=== PATIENT | male | born 1990 ===

== ENCOUNTER 2016-12-05 13:42 | Emergency (ER) | payer OTHER ==
[2016-12-05 14:36] VITALS: BP 120/52
--- NOTE | 2016-12-05 14:58 | UC ---
Abdominal Pain Male HPI - HPI Summary HPI Summary: 26 yo male awoke at three AM and had 3-4 episodes of vomiting since the has had some mild epigastric pain no diarrhea has been able to tolerate liquids today no f/c no UTI symptoms states he is here because he needs a work not for today drank Etoh last PM no nsaid use - History of Current Complaint Chief Complaint: UCGI Stated Complaint: VOMITING CONSTIPATION Time Seen by Provider: 12/05/16 14:35 Hx Obtained From: Patient Onset/Duration: Sudden Onset, Lasting Hours Timing: Constant Severity Initially: Moderate Severity Currently: Mild Pain Intensity: 3 Pain Scale Used: 0-10 Numeric Location: Epigastric Radiates: No Character: Unable to describe Aggravating Factor(s):: Nothing Alleviating Factor(s): Nothing Associated Signs And Symptoms: Positive: Decreased Appetite, Nausea, Vomiting. Negative: Diaphoresis, Fever, Cough, Chest Pain, Dizzy, Back Pain, Constipation , Blood in Stool, Urinary Symptoms, Diarrhea, Penile Discharge - Allergies/Home Medications Allergies/Adverse Reactions: Allergies Allergy/AdvReac Type Severity Reaction Status Date / Time No Known Allergies Allergy Verified 12/05/16 14:36 PMH/Surg Hx/FS Hx/Imm Hx Previously Healthy: Yes - Surgical History Surgical History: None - Family History Known Family History: Positive: Hypertension - Social History Alcohol Use: Rare Substance Use Type: None Smoking Status (MU): Heavy Every Day Tobacco Smoker Amount Used/How Often: 4-12 per day Household Exposure Type: Cigarettes Review of Systems Constitutional: Negative Skin: Negative Eyes: Negative ENT: Negative Respiratory: Negative Cardiovascular: Negative Gastrointestinal: Abdominal Pain, Vomiting Genitourinary: Negative Motor: Negative Neurovascular: Negative Musculoskeletal: Negative Neurological: Negative Psychological: Negative All Other Systems Reviewed And Are Negative: Yes Physical Exam Triage Information Reviewed: Yes Appearance: Well-Appearing, No Pain Distress, Well-Nourished Vital Signs: Initial Vital Signs Temp 98.9 F 12/05/16 14:30 Pulse 60 12/05/16 14:30 Resp 16 12/05/16 14:30 BP 120/52 12/05/16 14:30 Pulse Ox 98 12/05/16 14:30 Vital Signs Reviewed: Yes Eyes: Positive: Conjunctiva Clear ENT: Positive: Hearing grossly normal, TMs normal. Negative: Pharyngeal erythema, Nasal congestion, Nasal drainage, Tonsillar exudate, Trismus, Muffled/ hoarse voice Dental: Negative: Gross Decay/Caries @, Dental Fracture @ Neck: Positive: Supple, Nontender, No Lymphadenopathy Respiratory: Positive: Lungs clear, Normal breath sounds, No respiratory distress, No accessory muscle use Cardiovascular: Positive: RRR, No Murmur. Negative: Brisk Capillary Refill, Tachycardia, Bradycardia Abdomen Description: Positive: No Organomegaly. Negative: Nontender - slight LUQ tenderness, Bruit, CVA Tenderness (R), CVA Tenderness (L), Distended, Hernia @, Hepatomegaly, McBurney's Point Tenderness, Peritoneal Signs, Pulsatile Mass, Splenomegaly Bowel Sounds: Positive: Present Musculoskeletal: Positive: Strength Intact, ROM Intact, No Edema Neurological Exam: Normal Neurological: Positive: Alert Psychological Exam: Normal Skin Exam: Normal Abd Pain Male Course/Dx - Differential Dx/Clinical Impression Provider Diagnoses: acute gastritis Discharge - Discharge Plan Condition: Stable Disposition: HOME Prescriptions: Ondansetron TAB* [Zofran 4 MG Tab*] 4 mg PO Q6H PRN #6 tab PRN Reason: Nausea Patient Education Materials: Gastritis (ED) Forms: *Work Release Additional Instructions: milk of magnesia 30 cc (2 tablespoons) every 2 hours while awake for 2-3 days recheck for new or worsening symptoms recheck at your MD in 2-3 days if not completely better if not able to get in to see your provider we will be happy to see you here
== END 2016-12-05 15:07 | disposition home or self-care (01) ==
LOC: UCCORT 13:42
DX: K29.00 Acute gastritis without bleeding (principal); F17.210 Nicotine dependence, cigarettes, uncomplicated
CPT/HCPCS: 99202; G0463